=== PATIENT | male | born 1950 | race Caucasian/White ===

== ENCOUNTER 2021-03-15 08:48 | Inpatient (IN) | payer MEDICARE ==
[~2021-03-15] VITALS: Ht 172.7 cm; Wt 81.0 kg
[~2021-03-15 08:48] MED LIST: ASPIRIN 81M81 MG/TA2 PO; LIPITOR 80MG80 MG PO; PLAVIX 75MG TAB75 MG PO; PRINIVIL10 MG PO; VITAMIN B12 PO
[2021-03-15 09:06] LABS: BASO % 0.3 % (0.0-2.0); EOS % 0.3 % (0-4.0); GRAN # 4.4 (1.4-6.5); GRAN % 71.1 % (42.2-75.2); HEMATOCRIT 37.6 % (42.0-52.0); LYMPH % 15.7 % (20.0-51.0); MEAN CELL VOLUME 98 fl (80.0-100.0); MEAN CORPUSCULAR HEMOGLOBIN 31 pg (27.0-31.0); MEAN CORPUSCULAR HGB CONC 32 g/dl (33.0-37.0); MEAN PLATELET VOLUME 9.3 fl (7.4-10.4); MONO # 0.8 (0.1-0.6); MONO % 12.1 % (1.7-9.3); PLATELET COUNT 146 K/mm3 (130-400); RED BLOOD COUNT 3.84 M/mm3 (4.20-5.60); REDCELL DISTRIBUTION WIDTH-CV 14.1 % (11.5-14.5)
[2021-03-15 09:15] LABS: BILIRUBIN,TOTAL 1.2 mg/dL (0.0-1.0); CALCIUM 8.8 mg/dL (8.4-10.2); CREATININE, serum 0.93 (0.66-1.25); POTASSIUM 4.1 mmol/L (3.4-5.0); TOTAL PROTEIN 7.7 gm/dL (6.4-8.2)
[2021-03-15 09:15] LABS: ARTERIAL BLD GAS O2 SATURATION 96.8 % (92-100); ARTERIAL BLD GAS TCO2 CT 24.8; ARTERIAL BLOOD GAS BASE EXCESS -0.6 (-2-2); ARTERIAL BLOOD GAS HCO3 23.6 meq/L (22-26); ARTERIAL BLOOD GAS PCO2 37.6 mmHg (35-45); ARTERIAL BLOOD GAS PO2 86.2 mmHg (80-100); ARTERIAL BLOOD GAS pH 7.42 (7.35-7.45)
[2021-03-15] MEDS ORDERED: LANOXIN 0.25M0.25 MG PO (10:27)
[2021-03-15] MEDS ORDERED: LASIX 40MG TABL40 MG PO (10:28)
[2021-03-15] MEDS ORDERED: PRILOSEC 20MG20 MG PO (10:30)
[2021-03-15] MEDS ORDERED: TOPROL XL 25MG25 MG PO (10:30)
[2021-03-15] MEDS ORDERED: PROVENTIL0.09 MG/A1 INH (10:31)
[2021-03-15 10:47] LABS: TROPONIN-I < 0.012 ng/mL (0.000-0.035)
[2021-03-15 13:45] LABS: COLLECTION METHOD CLEAN CATCH
[2021-03-15 13:50] LABS: PH 6 (5-8); SQUAMOUS EPITHELIAL None Seen /hpf; URINE APPEARANCE Clear; URINE BACTERIA None Seen /hpf; URINE BILIRUBIN Negative (NEGATIVE); URINE BLOOD Negative (NEGATIVE); URINE COLOR Yellow; URINE GLUCOSE Negative (NEGATIVE); URINE KETONE 1+ (NEGATIVE); URINE LEUKOCYTE ESTERASE Negative (NEGATIVE); URINE NITRATE Negative (NEGATIVE); URINE PROTEIN(semi-quant) Negative (NEGATIVE); URINE RBC 0-2 /hpf; URINE UROBILINOGEN Negative (NEGATIVE)
[2021-03-15 16:09] VITALS: BP 115/42; PULSE 87; TEMP 97.9
--- NOTE | 2021-03-15 18:30 | NUR ---
Patient arrived to floor around 1300. He is alert and oriented. He is hard to understand when talking. He mumbles at times. He has some wheezing with deep breaths. Discussed the plan for him while here. Oriented patient to room. Explained how to order food. He denies nausea. Stated having pain when coughing. No other changes at this time. Call light withinr each. Placed bed alarm on.
[2021-03-15 19:55] VITALS: BP 125/47; PULSE 79; TEMP 98.6
--- NOTE | 2021-03-15 20:36 | NUR ---
Pt doing well at this time. He reports that he is starting to feel better. Minimal needs at this time, no pain complaints. Call light within reach
[2021-03-15 23:38] VITALS: BP 123/53; PULSE 70; TEMP 97.8
--- NOTE | 2021-03-16 01:58 | NUR ---
Pt continues to sleep through the night. He does wake easily to assess. No pain complaints or needs verbalized, call light within reach
[2021-03-16 02:59] VITALS: BP 129/55; PULSE 88; TEMP 98
--- NOTE | 2021-03-16 06:40 | NUR ---
bedside shift report received from BOBBY Perrin
[2021-03-16 07:05] LABS: BASO % 0.2 % (0.0-2.0); GRAN # 4.9 (1.4-6.5); GRAN % 88.1 % (42.2-75.2); HEMOGLOBIN 10.4 g/dl (13.5-18.0); LYMPH # 0.4 (1.2-3.4); MEAN CELL VOLUME 98 fl (80.0-100.0); MEAN CORPUSCULAR HEMOGLOBIN 31 pg (27.0-31.0); MEAN CORPUSCULAR HGB CONC 32 g/dl (33.0-37.0); MEAN PLATELET VOLUME 9.6 fl (7.4-10.4); MONO # 0.2 (0.1-0.6); MONO % 4.3 % (1.7-9.3); PLATELET COUNT 145 K/mm3 (130-400); RED BLOOD COUNT 3.32 M/mm3 (4.20-5.60); REDCELL DISTRIBUTION WIDTH-CV 13.6 % (11.5-14.5)
[2021-03-16 07:06] LABS: HEMATOCRIT 32.5 % (42.0-52.0)
--- NOTE | 2021-03-16 07:20 | NUR ---
sitting up in bed and having breakfast
[2021-03-16 07:24] LABS: CALCIUM 8.3 mg/dL (8.4-10.2); CREATININE, serum 0.76 (0.66-1.25); POTASSIUM 3.9 mmol/L (3.4-5.0)
[2021-03-16 08:15] VITALS: BP 108/46; PULSE 98; TEMP 98
--- NOTE | 2021-03-16 10:00 | NUR ---
resting in bed, full assessment completed, see interventions for further info, physical therapy was in earlier and patient ambulated about in room and did well, he did state he was a little weak and had some shortness of breath when up and moving, has been placed in droplet/contact isolation, denies pain or needs, will be bringin his medicine so med reconcilliation can be reviewed, am hygiene provided
--- NOTE | 2021-03-16 11:03 | NUR ---
Stave Block Splitter met with patient to discuss discharge planning. Patient lives in [place] with his , Cecilia (ph#[phone]) and sees Dr. Iraheta for primary care. Patient obtains medications from [facility] with no difficulties. Patient uses a CPAP at home and also has a cane and walker at home if he needs it, but does not normally use them. Patient is normally independent with ADLS and still works as a customer success associate. Patient thinks he may have completed DPOA-HC but isn't sure. SW did not locate copy in patient's EMR. Patient plans to return home upon discharge. Patient is currently oxygen but does not use it as baseline. SW will continue to monitor. SW contacted patient's , Cecilia and reviewed discharge plan. Cecilia is in agreement with discharge home and feels patient would benefit from home oxygen. Discharge Plan: Home, may need home oxygen.
[2021-03-16] MEDS ORDERED: TYLENOL 500MG500 MG PO (11:13)
[2021-03-16] MEDS ORDERED: ZYRTEC 10MG10 MG PO (11:15)
[2021-03-16] MEDS ORDERED: 00186-0370-20 IH (11:15)
[2021-03-16] MEDS ORDERED: SINGULAIR 110 MG/TAB PO (11:17)
[2021-03-16] MEDS ORDERED: SPIRIVA RE2.5 MCG/Ac IH (11:19)
[2021-03-16] MEDS ORDERED: K-TAB10 PO (11:19)
--- NOTE | 2021-03-16 11:34 | NUR ---
is here and has brought list of home meds and the medications and med reconcilliation reviewed, Dr Rbuio and care team in to see patient, IVF discontinued
[2021-03-16] MEDS ORDERED: XARELTO20 MG PO (11:49)
--- NOTE | 2021-03-16 12:15 | NUR ---
remains at bedside, he will order lunch and will ask for a guest tray for his ,
[2021-03-16 12:38] VITALS: BP 112/58; PULSE 78; TEMP 97.5
--- NOTE | 2021-03-16 13:57 | NUR ---
had lunch and tolerated well, denies needs
--- NOTE | 2021-03-16 15:00 | NUR ---
watching TV, cardiopulmonary in and provided breathing treatment, he denies needs
[2021-03-16 16:23] VITALS: BP 111/46; PULSE 78; TEMP 97.3
--- NOTE | 2021-03-16 18:38 | NUR ---
waiting for supper, bedside shift report given to BOBBY Perrin
[2021-03-16 19:07] VITALS: BP 123/48; PULSE 67; TEMP 98.2
--- NOTE | 2021-03-16 22:43 | NUR ---
Pt doing well up to this point. No pain complaints and reports overall feeling better. Pt appears to be clammy, reports that he feels comfortable at this time.
[2021-03-16 23:04] VITALS: BP 123/57; PULSE 69; TEMP 97.3
[2021-03-17 03:07] VITALS: BP 124/63; PULSE 68; TEMP 97.4
[2021-03-17 06:41] LABS: GRAN # 6.8 (1.4-6.5); GRAN % 83.1 % (42.2-75.2); HEMOGLOBIN 10.3 g/dl (13.5-18.0); LYMPH # 0.8 (1.2-3.4); LYMPH % 9.6 % (20.0-51.0); MEAN CELL VOLUME 95 fl (80.0-100.0); MEAN CORPUSCULAR HEMOGLOBIN 31 pg (27.0-31.0); MEAN CORPUSCULAR HGB CONC 32 g/dl (33.0-37.0); MEAN PLATELET VOLUME 9.6 fl (7.4-10.4); MONO # 0.6 (0.1-0.6); MONO % 6.7 % (1.7-9.3); PLATELET COUNT 164 K/mm3 (130-400); RED BLOOD COUNT 3.37 M/mm3 (4.20-5.60); REDCELL DISTRIBUTION WIDTH-CV 13.8 % (11.5-14.5)
[2021-03-17 06:49] LABS: CALCIUM 8.5 mg/dL (8.4-10.2); CREATININE, serum 0.82 (0.66-1.25); POTASSIUM 4.2 mmol/L (3.4-5.0)
[2021-03-17 07:01] VITALS: BP 134/77; PULSE 68; TEMP 97.5
--- NOTE | 2021-03-17 07:14 | NUR ---
Pt slept most of the night with minimal needs, no pain complaints. Just ordered breakfast, no needs verbalized
--- NOTE | 2021-03-17 08:50 | NUR ---
Patient sitting up on edge of bed. Alert and oriented x 3. Assessment complete. Denies pain at this time. Patient currently on 4L O2 via NC. Lungs course throughout all hobson. Patient denies further needs at this time.
[2021-03-17 10:46] VITALS: BP 148/60; PULSE 98; TEMP 98.4
[2021-03-17 15:05] VITALS: BP 121/53; PULSE 93; TEMP 97.5
--- NOTE | 2021-03-17 18:14 | NUR ---
Patient doing well throughout the day. Spouse at bedside this afternoon. Denies pain through the day. Denies further needs at this time. Will report off to standpipe tender
[2021-03-17 19:13] VITALS: BP 127/62; PULSE 92; TEMP 97.9
--- NOTE | 2021-03-17 20:00 | NUR ---
PT JUST RETURNED FROM [facility]. RELATED HAD BM. PT DYSPNEIC W/ ACTIVITY. O2 4L OXY MASK. RT OFFERED PT CPAP TONIGHT. DENIES PAIN. HAD LASIXC ERLIER TODAY. DIURESIS SLOWED NOW. SCD'S ON BILAT. CALL LIGHT IN REACH.
[2021-03-17 22:58] VITALS: BP 118/50; PULSE 82; TEMP 98.1
[2021-03-18 03:29] VITALS: BP 125/68; PULSE 74; TEMP 97.7
--- NOTE | 2021-03-18 06:01 | NUR ---
PT HAS SLEPT WELL THIS SHIFT WITH CPAP AND O2 IN PLACE. NO DISTRESS.
[2021-03-18 06:34] LABS: BASO % 0.1 % (0.0-2.0); GRAN # 5.6 (1.4-6.5); GRAN % 74.7 % (42.2-75.2); HEMOGLOBIN 10.7 g/dl (13.5-18.0); LYMPH # 1.1 (1.2-3.4); LYMPH % 14.7 % (20.0-51.0); MEAN CELL VOLUME 96 fl (80.0-100.0); MEAN CORPUSCULAR HEMOGLOBIN 30 pg (27.0-31.0); MEAN CORPUSCULAR HGB CONC 32 g/dl (33.0-37.0); MEAN PLATELET VOLUME 9.5 fl (7.4-10.4); MONO # 0.7 (0.1-0.6); MONO % 9.4 % (1.7-9.3); PLATELET COUNT 188 K/mm3 (130-400); RED BLOOD COUNT 3.55 M/mm3 (4.20-5.60); REDCELL DISTRIBUTION WIDTH-CV 13.6 % (11.5-14.5)
[2021-03-18 06:39] LABS: CALCIUM 8.2 mg/dL (8.4-10.2); CREATININE, serum 0.78 (0.66-1.25); POTASSIUM 3.8 mmol/L (3.4-5.0)
--- NOTE | 2021-03-18 06:45 | NUR ---
appears to be sleeping, bedside shift report received from BOBBY Powell
--- NOTE | 2021-03-18 07:15 | NUR ---
awake resting in bed watching TV, has ordered breakfast, full assessment completed, see interventions for further info, denies needs at this time
[2021-03-18 08:42] VITALS: BP 129/50; PULSE 90; TEMP 98.3
--- NOTE | 2021-03-18 10:12 | NUR ---
up and ambulating in room with physical therapy, to chair
--- NOTE | 2021-03-18 10:16 | NUR ---
JAZMINE Casey in to see patient
[2021-03-18 12:55] VITALS: BP 106/61; PULSE 76; TEMP 98
--- NOTE | 2021-03-18 14:30 | NUR ---
remains up in chair, offered for him to return to bed but states he is OK remaining up in chair
[2021-03-18 16:31] VITALS: BP 108/55; PULSE 72; TEMP 97.2
--- NOTE | 2021-03-18 17:30 | NUR ---
remains in chair and is ordering supper
--- NOTE | 2021-03-18 18:20 | NUR ---
assisted up to bathroom and then when out of bathroom assisted back to bed
--- NOTE | 2021-03-18 18:45 | NUR ---
bedside shift report given to BOBBY Dudley
[2021-03-18 21:15] VITALS: BP 116/57; PULSE 86; TEMP 97.3
--- NOTE | 2021-03-18 21:30 | NUR ---
Patient has no complaints of pain at this time. Patient is on 5 L of oxygen via oxy mask. VSS. Requested some jello for a snack. No additional needs at this time. Call light in reach.
--- NOTE | 2021-03-18 23:30 | NUR ---
RT in setting up patient's CPAP.
[2021-03-19] VITALS (7 sets, daily range): BP systolic 100–136; BP diastolic 48–85; PULSE 60–81; TEMP 97.5–98.1
--- NOTE | 2021-03-19 06:48 | NUR ---
appears to be sleeping, bedside shift report received from BOBBY Valera
[2021-03-19 07:15] LABS: HEMOGLOBIN 11.3 g/dl (13.5-18.0); MEAN CELL VOLUME 99 fl (80.0-100.0); MEAN CORPUSCULAR HEMOGLOBIN 31 pg (27.0-31.0); MEAN CORPUSCULAR HGB CONC 31 g/dl (33.0-37.0); MEAN PLATELET VOLUME 9.2 fl (7.4-10.4); PLATELET COUNT 208 K/mm3 (130-400); RED BLOOD COUNT 3.66 M/mm3 (4.20-5.60); REDCELL DISTRIBUTION WIDTH-CV 13.6 % (11.5-14.5)
[2021-03-19 07:19] LABS: HEMATOCRIT 36.2 % (42.0-52.0)
--- NOTE | 2021-03-19 07:20 | NUR ---
awake and sitting up in bed ready for breakfast
[2021-03-19 07:25] LABS: CALCIUM 8.2 mg/dL (8.4-10.2); CREATININE, serum 0.88 (0.66-1.25); POTASSIUM 4.1 mmol/L (3.4-5.0)
--- NOTE | 2021-03-19 08:45 | NUR ---
had breakfast and tolerated well, full assessment completed, see interventions for further info, assisted up to bathroom to try and have bowel movement, will plan to sit up in recliner after
--- NOTE | 2021-03-19 09:35 | NUR ---
resting in chair, O2 down to 4L/NC, will monitor O2 sat
--- NOTE | 2021-03-19 10:54 | NUR ---
resting in chair, O2 sat at this time is 92% on 4L, O2 down to 3L and will recheck in 1 hour
--- NOTE | 2021-03-19 12:46 | NUR ---
remains up in chair, O2 sat is 94% on O2 at 3L
--- NOTE | 2021-03-19 18:49 | NUR ---
bedside shift report given to BOBBY Dudley
[2021-03-20 03:12] VITALS: BP 126/48; PULSE 66; TEMP 97.4
[2021-03-20 06:18] LABS: HEMATOCRIT 41.2 % (42.0-52.0); HEMOGLOBIN 13.2 g/dl (13.5-18.0); MEAN CELL VOLUME 97 fl (80.0-100.0); MEAN CORPUSCULAR HEMOGLOBIN 31 pg (27.0-31.0); MEAN CORPUSCULAR HGB CONC 32 g/dl (33.0-37.0); MEAN PLATELET VOLUME 9.2 fl (7.4-10.4); PLATELET COUNT 225 K/mm3 (130-400); RED BLOOD COUNT 4.24 M/mm3 (4.20-5.60); REDCELL DISTRIBUTION WIDTH-CV 13.4 % (11.5-14.5)
[2021-03-20 06:24] LABS: CALCIUM 8.8 mg/dL (8.4-10.2); CREATININE, serum 0.85 (0.66-1.25); POTASSIUM 4.1 mmol/L (3.4-5.0)
--- NOTE | 2021-03-20 06:32 | NUR ---
Patient did well throughout the shift. 3 L of oxygen via nasal cannula. No complaints of pain. Voiding in the urinal. Ambulating standby assist. Will report off to day shift.
[2021-03-20 07:57] VITALS: BP 141/66; PULSE 94; TEMP 97.9
[2021-03-20 08:13] LABS: BAND 5 % (0-10); LYMPHOCYTE 19 % (20.0-51.0); METAMYELOCYTE 1 % (0-0); NEUTROPHILS 69 % (42.0-75.2)
[2021-03-20 08:14] LABS: OVALOCYTES 1+; PLATELET ESTIMATE NORMAL (NORMAL)
[2021-03-20 11:52] VITALS: BP 134/65; PULSE 70; TEMP 98.1
[2021-03-20 15:50] VITALS: BP 119/73; PULSE 79; TEMP 97.4
--- NOTE | 2021-03-20 18:12 | NUR ---
Patient resting in bedside recliner eating dinner at this time. Patient is alert and oriented, answers questions appropriately. Patient denies pain or SOA while at rest. Patient is SBA in room and tolerates ambulating short distances with oxygen. Denies further needs, call light within reach.
[2021-03-20 19:41] VITALS: BP 111/54; PULSE 74; TEMP 97.4
--- NOTE | 2021-03-20 20:17 | NUR ---
Received report from BOBBY Kamara. All medications verified and all questions answered. Patient resting in recliner watching TV. No concerns or complaints noted from this time. Patient in contact/droplet precautions d/t rhinovirus. Will resume care of patient at this time.
[2021-03-21 00:05] VITALS: BP 150/63; PULSE 57; TEMP 98.6
[2021-03-21 04:02] VITALS: BP 142/83; PULSE 65; TEMP 97.4
[2021-03-21 05:51] LABS: HEMATOCRIT 41.1 % (42.0-52.0); MEAN CELL VOLUME 96 fl (80.0-100.0); MEAN CORPUSCULAR HEMOGLOBIN 30 pg (27.0-31.0); MEAN CORPUSCULAR HGB CONC 32 g/dl (33.0-37.0); MEAN PLATELET VOLUME 8.8 fl (7.4-10.4); PLATELET COUNT 222 K/mm3 (130-400); RED BLOOD COUNT 4.27 M/mm3 (4.20-5.60); REDCELL DISTRIBUTION WIDTH-CV 13.3 % (11.5-14.5)
[2021-03-21 06:02] LABS: CALCIUM 8.9 mg/dL (8.4-10.2); CREATININE, serum 1.06 (0.66-1.25); POTASSIUM 4.1 mmol/L (3.4-5.0)
[2021-03-21 06:24] LABS: BAND 1 % (0-10); EOSINOPHIL 1 % (0-4); LYMPHOCYTE 15 % (20.0-51.0); MYELOCYTE 1 % (0-0); NEUTROPHILS 72 % (42.0-75.2); PLATELET ESTIMATE NORMAL (NORMAL)
[2021-03-21 06:25] LABS: HYPOCHROMIA 2+
--- NOTE | 2021-03-21 08:00 | NUR ---
Patient resting in bedside recliner at this time. Patient is alert and oriented, answers questions appropriately. Patient denies pain or SOA, patient is moving independently in the room. Denies further needs, call light within reach.
[2021-03-21 08:06] VITALS: BP 132/55; PULSE 68; TEMP 97.5
[2021-03-21] MEDS ORDERED: MUCUS RELIEF400 M1 PO (09:20)
[2021-03-21] MEDS ORDERED: FLONASE NASAL S16 GM NS (09:21)
[2021-03-21] MEDS ORDERED: LEVAQUIN 750MG750 M1 PO (09:27)
[2021-03-21] MEDS ORDERED: PREDNISONE20 MG PO (09:29)
[2021-03-21 12:21] VITALS: BP 118/55; PULSE 50; TEMP 98
--- NOTE | 2021-03-21 12:58 | NUR ---
Discharge teaching completed. Discussed discharge appointment, follow up labs, and discharge medications. Discussed in detail antibiotic and prednisone taper instructions. Patient verbalized understanding. IV removed from left and right forearms, catheters intact, hemostasis achieved. Patient confirmed all belonings are gathered and was escorted to ED entrance where he entered a private vehicle.
--- NOTE | 2021-03-21 14:37 | NUR ---
Patient ready for discharge home today. ALYSHA collaborated with RT Mar who did exercise oximetry and advised patient does not qualify for home oxygen. SW met with patient who advised he is eager to get home today.
== END 2021-03-21 14:00 | disposition home or self-care (01) | DRG 871 ==
LOC: COL.ER 08:48 → SURG 12:33
PROVIDERS: Family Medicine; Physician Assistant; Student in an Organized Health Care Education/Training Program; ADMIT Hospitalist
DX: A41.9 Sepsis, unspecified organism (principal); J18.9 Pneumonia, unspecified organism; J96.01 Acute respiratory failure with hypoxia; I50.22 Chronic systolic (congestive) heart failure; J44.0 Chronic obstructive pulmonary disease with (acute) lower respiratory infection; J44.1 Chronic obstructive pulmonary disease with (acute) exacerbation; E87.1 Hypo-osmolality and hyponatremia; Z66 Do not resuscitate; I48.0 Paroxysmal atrial fibrillation; I11.0 Hypertensive heart disease with heart failure; K21.9 Gastro-esophageal reflux disease without esophagitis; E78.5 Hyperlipidemia, unspecified; I25.10 Atherosclerotic heart disease of native coronary artery without angina pectoris; D64.1 Secondary sideroblastic anemia due to disease; G47.33 Obstructive sleep apnea (adult) (pediatric); B97.89 Other viral agents as the cause of diseases classified elsewhere; I27.20 Pulmonary hypertension, unspecified; I25.5 Ischemic cardiomyopathy; I44.0 Atrioventricular block, first degree; Z95.5 Presence of coronary angioplasty implant and graft; Z95.810 Presence of automatic (implantable) cardiac defibrillator; Z79.02 Long term (current) use of antithrombotics/antiplatelets; Z79.82 Long term (current) use of aspirin; Z87.891 Personal history of nicotine dependence
CPT/HCPCS: 99223-AI; 99232-AI; 99233-AI; 99239; J0692; J0696; J1940; J7030; J7512; Q9967

== ENCOUNTER → 2021-03-28 | Outpatient (CLI) | payer MEDICARE ==
[~2021-03-28] MED LIST changes: +00186-0370-20 IH; +FLONASE NASAL S16 GM NS; +K-TAB10 PO; +LANOXIN 0.25M0.25 MG PO; +LASIX 40MG TABL40 MG PO; +LEVAQUIN 750MG750 M1 PO; +MUCUS RELIEF400 M1 PO; +PREDNISONE20 MG PO; +PRILOSEC 20MG20 MG PO; +PROVENTIL0.09 MG/A1 INH; +SINGULAIR 110 MG/TAB PO; +SPIRIVA RE2.5 MCG/Ac IH; +TOPROL XL 25MG25 MG PO; +TYLENOL 500MG500 MG PO; +XARELTO20 MG PO; +ZYRTEC 10MG10 MG PO
[2021-03-28 09:41] LABS: CALCIUM 8.5 mg/dL (8.4-10.2); CREATININE, serum 0.85 (0.66-1.25); POTASSIUM 4.5 mmol/L (3.4-5.0)
== END ==
LOC: ZCOL.LAB 08:30 → COL.LAB 08:39
PROVIDERS: Physician Assistant
DX: I50.9 Heart failure, unspecified (principal)

== ENCOUNTER → 2021-12-26 | Outpatient (CLI) | payer MEDICARE, BC ==
[2021-12-26 10:45] LABS: ARTERIAL BLD GAS O2 SATURATION 95.5 % (92-100); ARTERIAL BLD GAS TCO2 CT 22.1; ARTERIAL BLOOD GAS BASE EXCESS -3.8 (-2-2); ARTERIAL BLOOD GAS PO2 84.4 mmHg (80-100); ARTERIAL BLOOD GAS pH 7.37 (7.35-7.45)
== END ==
LOC: COL.LAB 09:38 → COL.PUL 09:38
PROVIDERS: Internal Medicine Pulmonary Disease
DX: R06.02 Shortness of breath (principal)

== ENCOUNTER 2022-02-08 06:04 | Day surgery (SDC) | payer MEDICARE, BC ==
[~2022-02-08] VITALS: Ht 167.6 cm; Wt 88.7 kg
[2022-02-08 06:13] VITALS: BP 132/63; PULSE 65; TEMP 97.5
[2022-02-08] MEDS ORDERED: IPRATROPIUM BROM3 M1 IH (06:18)
[2022-02-08] MEDS ORDERED: ENTRESTO 24 MG1 EACH PO (06:20)
[2022-02-08] MEDS ORDERED: FLONASEALLERGY NS (06:21)
[2022-02-08] MEDS ORDERED: TOPROL XL 50MG50 MG PO (06:22)
[2022-02-08 07:46] VITALS: BP 111/58; PULSE 74
[2022-02-08 08:00] VITALS: BP 127/64; PULSE 60
[2022-02-08 08:15] VITALS: BP 124/93; PULSE 61
--- NOTE | 2022-02-08 08:34 | NUR ---
Discharg instructions given to pt.pt verbalizes understanding.
--- NOTE | 2022-02-08 09:00 | NUR ---
Pt escorted out via wheelchair by this nurse.
== END 2022-02-08 09:00 ==
LOC: SDCO 06:04
DX: K22.2 Esophageal obstruction (principal); K21.9 Gastro-esophageal reflux disease without esophagitis; D50.9 Iron deficiency anemia, unspecified; D12.5 Benign neoplasm of sigmoid colon; G47.33 Obstructive sleep apnea (adult) (pediatric); I25.5 Ischemic cardiomyopathy; I11.0 Hypertensive heart disease with heart failure; I50.20 Unspecified systolic (congestive) heart failure; Z87.891 Personal history of nicotine dependence; Z95.5 Presence of coronary angioplasty implant and graft; Z95.810 Presence of automatic (implantable) cardiac defibrillator; Z79.01 Long term (current) use of anticoagulants
CPT/HCPCS: C1726; J2704; J7120

== ENCOUNTER 2023-10-14 05:46 | Inpatient (IN) | payer MEDICARE, BC ==
[~2023-10-14] VITALS: Ht 170.2 cm; Wt 85.1 kg
[~2023-10-14 05:46] MED LIST changes: +BREZTRI AEROS10.7 GM IH; +CLARISPRAY9.9 ML NS; +CORDARONE200 MG/TAB PO; +DECADRON6 MG PO; +ENTRESTO 24 MG1 EACH PO; +FLONASEALLERGY NS; +IPRATROPIUM BROM3 M1 IH; +LASIX 20MG TABL20 MG PO; +PACERONE400 MG PO; +PULMICORT0.5 MG/2 M IH; +TAMIFLU 75MG75 MG PO; +TOPROL XL 50MG50 MG PO; +VTAMINC250TA
[2023-10-22 08:45] VITALS: BP 131/59; PULSE 79; TEMP 98.5
[2023-10-22] MEDS ORDERED: TOPROL XL 25MG25 MG PO (09:03)
[2023-10-22] MEDS ORDERED: ZYRTEC 10MG10 MG PO (09:07)
[2023-10-22] MEDS ORDERED: ENTRESTO 24 MG1 EACH PO (09:08)
[2023-10-22] MEDS ORDERED: FERROUSAL325 MG PO (09:09)
[2023-10-22] MEDS ORDERED: K-TAB20 PO (09:10)
[2023-10-22 09:18] LABS: BASO % 0.7 % (0.0-2.0); EOS # 0.2 K/mm3 (0.0-0.7); GRAN # 1.8 K/mm3 (1.4-6.5); GRAN % 58.9 % (42.2-75.2); LYMPH # 0.6 K/mm3 (1.2-3.4); LYMPH % 18.5 % (20.0-51.0); MEAN CELL VOLUME 97 fl (80.0-100.0); MEAN CORPUSCULAR HEMOGLOBIN 29 pg (27-31); MEAN CORPUSCULAR HGB CONC 30 g/dl (33.0-37.0); MONO # 0.5 K/mm3 (0.1-0.6); MONO % 15.9 % (1.7-9.3); PLATELET COUNT 132 K/mm3 (130-400); RED BLOOD COUNT 3.47 M/mm3 (4.20-5.60); REDCELL DISTRIBUTION WIDTH-CV 21.1 % (11.5-14.5)
[2023-10-22 09:24] LABS: HEMATOCRIT 33.6 % (42.0-52.0)
[2023-10-22 09:30] LABS: INR 1.4 (0.8-3.0); PROTHROMBIN TIME 14.7 SECONDS (9.7-12.8)
[2023-10-22 09:44] LABS: ALBUMIN 2.8 gm/dL (3.4-4.8); BILIRUBIN,TOTAL 0.9 mg/dL (0.2-1.2); CALCIUM 9.2 mg/dL (8.4-10.2); CREATININE, serum 0.99 mg/dL (0.72-1.25); MAGNESIUM 2.1 mg/dL (1.6-2.6); POTASSIUM 4.5 mmol/L (3.5-4.5); TOTAL PROTEIN 6.3 gm/dL (6.2-8.1)
[2023-10-22 11:10] VITALS: BP 117/42; PULSE 78; TEMP 98.4
[2023-10-22 15:05] VITALS: BP 111/66; PULSE 61; TEMP 97.3
[2023-10-22 20:08] VITALS: BP 100/58; PULSE 61; TEMP 98.2
[2023-10-22 20:15] VITALS: BP_SYST 103
[2023-10-22 23:48] VITALS: BP 103/54; PULSE 60; TEMP 97.8
[2023-10-23] VITALS (10 sets, daily range): BP systolic 93–115; BP diastolic 57–62; PULSE 57–76; TEMP 97.5–98.4
--- NOTE | 2023-10-23 00:48 | NUR ---
patient lying in bed, alert and oriented x4. pt denies pain and shortness of breath at this time, only short of breath with exertion. IV in LAC is patent, site is clean dry and intact. RLE small open ulcer with minimal yellowish drainage and yellow ulcer, red/purple blisters surronding ulcers with red blanchable surrounding skin on right de los santos, small closed scabs and blisters on LLE, cracked dry heels blanchable with +1 pitting edema in BLE, generalized bruising on extremities noted. pt has no further needs, questions, or concerns. call light within reach. will continue to monitor.
--- NOTE | 2023-10-23 08:00 | NUR ---
Patient laying in bed, A&Ox4. CPAP on. IV CDI. VSS. Denies pain and discomfort. No further needs expressed. Call light within reach. Bed alarm on
[2023-10-23 09:39] LABS: BASO % 0.3 % (0.0-2.0); EOS % 0.3 % (0.0-4.0); GRAN # 2.1 K/mm3 (1.4-6.5); GRAN % 71.3 % (42.2-75.2); LYMPH # 0.5 K/mm3 (1.2-3.4); LYMPH % 16.4 % (20.0-51.0); MEAN CELL VOLUME 95 fl (80.0-100.0); MEAN CORPUSCULAR HGB CONC 30 g/dl (33.0-37.0); MEAN PLATELET VOLUME 9.5 fl (7.4-10.4); MONO # 0.3 K/mm3 (0.1-0.6); PLATELET COUNT 149 K/mm3 (130-400); RED BLOOD COUNT 3.29 M/mm3 (4.20-5.60); REDCELL DISTRIBUTION WIDTH-CV 20.6 % (11.5-14.5)
[2023-10-23 09:47] LABS: HEMATOCRIT 31.3 % (42.0-52.0); HEMOGLOBIN 9.5 g/dl (13.5-18.0); MEAN CORPUSCULAR HEMOGLOBIN 29 pg (27-31)
[2023-10-23 09:50] LABS: CALCIUM 8.8 mg/dL (8.4-10.2); CREATININE, serum 0.9 mg/dL (0.72-1.25)
--- NOTE | 2023-10-23 16:27 | NUR ---
parks worker met with patient to discuss discharge planning. Patient lives in [place] with his , Cecilia, P# [phone]. PCP is Myrtle or Jazmin at the [place]. Pharmacy is [facility]. No issues affording medications. Insurance is Medicare, Medicaid and Blue Cross Blue Shield. Patient does not have a DPOA-HC but may be interested in completing one. Patient would like to speak with his before completing one in the hospital. DME is CPAP, oxygen concentrator and he has a walker but has not been using it. Patient reports he needs some assistance at home but reports he can bath, toilet and dress himself. Patient's is able to transport him to and from appointments. Patient would like to return home at time of discharge. SW discussed home health services, patient expressed he would review the Medicare.gov list of options the SW provided but he had done outpatient PT at the [facility] before. SW will continue to follow up. Discharge Plan: Home
--- NOTE | 2023-10-23 23:34 | NUR ---
Patient assessed around 2039. Alert and oriented, and able to make needs known. Denies having pain and discomfort. Peripheral INT to left AC. Reports he always has SOB and dyspnea, increase with exertion. On oxygen at 4 L/min via OM. HRR. Telemetry in place. BSAx4. Edema to BLE and bilateral feet. Dressings to BLE are CDI. Voices no questions, needs, or concerns at this time. In bed with call light within reach. Bed alarm on.
[2023-10-24 03:16] VITALS: BP 111/61; PULSE 60; TEMP 97.7
[2023-10-24 04:00] VITALS: BP_SYST 111
--- NOTE | 2023-10-24 06:40 | NUR ---
Patient wore CPAP during the night. QTC this morning 550. Denies having pain and discomfort. Voices no questions, needs, or concerns at this time. In bed with call light within reach. Bed alarm on.
--- NOTE | 2023-10-24 06:55 | NUR ---
appears to be dozing, awakens easily, bedside shift report received from BOBBY Santa
[2023-10-24 07:19] VITALS: BP 105/64; PULSE 61; TEMP 98.6
[2023-10-24 07:57] VITALS: BP_SYST 105
--- NOTE | 2023-10-24 09:30 | NUR ---
appears to be dozing, awakened and full assessment completed, see interventions for further info, denies needs at this time
[2023-10-24] MEDS ORDERED: BETAPACE 120MG120 MG PO (10:40)
--- NOTE | 2023-10-24 10:45 | NUR ---
remainder of am meds given, dressing to bilateral lower extrmities changed using, xeroform, telfa pads, then wrapped withe gauze and cristiana wraps, left leg wound is dry and has open area to right de los santos and right side of lower leg, denies pain or needs,
--- NOTE | 2023-10-24 10:51 | NUR ---
Initial visit; Patient thanked Supervisor Power Reactor for looking in on him and offering Spirtual Care. Patient states he is "ok" though Supervisor Power Reactor can keep him in her prayers. Patient states, when asked, that he is from [place] and related to most of the [place] that Supervisor Power Reactor is acquainted with. Supervisor Power Reactor wished Zacarias well and offered God's blessings.
[2023-10-24 11:10] VITALS: BP 92/57; PULSE 59; TEMP 97.6
[2023-10-24 11:30] VITALS: BP_SYST 97
--- NOTE | 2023-10-24 12:19 | NUR ---
sitting up on side of bed eating lunch, will plan discharge
--- NOTE | 2023-10-24 12:35 | NUR ---
floor worker followed up with patient regarding if patient would like home health. Patient reports he may be interested in outpatient PT but was not interested in home health at this time. Patient would like to discuss with his later this afternoon. SW provided her number to follow up when she comes to the hospital. Discharge Plan: Home
--- NOTE | 2023-10-24 13:22 | NUR ---
resting in bed waiting for for discharge
--- NOTE | 2023-10-24 14:35 | NUR ---
AIV services in and PICC discontinued
--- NOTE | 2023-10-24 14:53 | NUR ---
here, discharge instructions given to patient and his , verbalizes understanding, stressed to take 60mg (1/2 tab 120mg) sotalol twice a day and to stop metoprolo and amiodorone, will get up and get dressed with and MERCERIZING RANGE FEEDER in
--- NOTE | 2023-10-24 15:15 | NUR ---
discharged per [facility]
== END 2023-10-24 15:15 | disposition home or self-care (01) | DRG 309 ==
LOC: MEDICAL 10-22 05:46
PROVIDERS: ADMIT Internal Medicine Cardiovascular Disease
DX: I48.91 Unspecified atrial fibrillation (principal); I50.22 Chronic systolic (congestive) heart failure; K21.9 Gastro-esophageal reflux disease without esophagitis; J44.9 Chronic obstructive pulmonary disease, unspecified; I25.10 Atherosclerotic heart disease of native coronary artery without angina pectoris; E78.5 Hyperlipidemia, unspecified; I11.0 Hypertensive heart disease with heart failure; I27.20 Pulmonary hypertension, unspecified; I89.0 Lymphedema, not elsewhere classified; I44.0 Atrioventricular block, first degree; R23.8 Other skin changes; I47.20 Ventricular tachycardia, unspecified; I08.1 Rheumatic disorders of both mitral and tricuspid valves; Z95.810 Presence of automatic (implantable) cardiac defibrillator; Z95.5 Presence of coronary angioplasty implant and graft; Z86.16 Personal history of COVID-19; Z90.89 Acquired absence of other organs; Z79.899 Other long term (current) drug therapy; Z88.8 Allergy status to other drugs, medicaments and biological substances
CPT/HCPCS: J7512